=== PATIENT | female | born 1990 | race African-American/Black ===

== ENCOUNTER 2016-11-06 21:59 | Emergency (ER) | payer MEDICAID ==
[~2016-11-06] VITALS: Ht 149.9 cm; Wt 58.2 kg
[~2016-11-06 21:59] MED LIST: AMOXICILLIN 50500 MG PO; BACTRIM DS 8001 TAB PO; BRET2.5 PO; CEPHALEXIN500 M1 PO; DRAMAMINE50 M1 PO; ELIMITE TOP; FLAGYL500 MG PO; IMPLANON68 MG ID; LORTAB 5/500 501 TAB PO; LOTRIMIN1% TP; MACROBID 1100 MG/CAP PO; MOTRIN 600600 MG/TAB PO; MOTRIN 800800 MG/TAB PO; NO HOME MEDICATIONS; PERCOCET 325 MG1 TA2 PO; PHENERGAN25 MG RC; PRENATAL PO; PRENATAL1 TA2 PO; PRENATAL1 TA7 PO; VALTREX 50500 MG/TAB PO; VALTREX1 GM PO; ZITHROMAX500 M2 PO; [UNRECOGNIZED DRUG - OTHER] OP
[2016-11-06 22:02] VITALS: BP 115/62; TEMP 98.6
[2016-11-06] MEDS ORDERED: AMOXICILLIN 8751 TAB PO (23:04)
[2016-11-06] MEDS ORDERED: ULTRAM 50MG TAB50 MG PO (23:05)
[2016-11-06 23:50] VITALS: PULSE 83
== END 2016-11-06 23:56 | disposition home or self-care (01) ==
LOC: COL.ER 21:59
DX: K08.89 Other specified disorders of teeth and supporting structures (principal)

== ENCOUNTER 2016-12-27 13:43 | Emergency (ER) | payer MEDICAID ==
[~2016-12-27] VITALS: Ht 149.9 cm; Wt 59.1 kg
[~2016-12-27 13:43] MED LIST changes: +AMOXICILLIN 8751 TAB PO; +ULTRAM 50MG TAB50 MG PO
[2016-12-27 13:45] VITALS: BP 130/97; TEMP 98.5
[2016-12-27 15:58] VITALS: PULSE 90
== END 2016-12-27 15:58 | disposition home or self-care (01) ==
LOC: COL.ER 13:43
DX: K08.89 Other specified disorders of teeth and supporting structures (principal)
CPT/HCPCS: J1885

== ENCOUNTER 2017-02-13 01:30 | Emergency (ER) | payer MEDICAID ==
[~2017-02-13] VITALS: Ht 180.3 cm; Wt 61.4 kg
[2017-02-13 01:33] VITALS: BP 131/83; TEMP 99.1
[2017-02-13] MEDS ORDERED: AMOXICILLIN 50500 MG PO (02:19)
[2017-02-13 02:36] VITALS: PULSE 85
== END 2017-02-13 03:03 | disposition home or self-care (01) ==
LOC: COL.ER 01:30
DX: K04.7 Periapical abscess without sinus (principal)

== ENCOUNTER 2017-03-07 17:33 | Emergency (ER) | payer MEDICAID ==
[~2017-03-07] VITALS: Ht 154.9 cm; Wt 60.5 kg
[2017-03-07 17:45] VITALS: BP 114/66; PULSE 94; TEMP 98.7
[2017-03-07] MEDS ORDERED: PRENATAL PO (17:48)
[2017-03-07] MEDS ORDERED: DICLEGIS (17:48)
== END 2017-03-07 18:32 | disposition home or self-care (01) ==
LOC: COL.ER 17:33
DX: O99.89 Other specified diseases and conditions complicating pregnancy, childbirth and the puerperium (principal); R10.84 Generalized abdominal pain; Z3A.10 10 weeks gestation of pregnancy; W10.9XXA Fall (on) (from) unspecified stairs and steps, initial encounter

== ENCOUNTER 2017-05-02 17:05 | Emergency (ER) | payer MEDICAID ==
[~2017-05-02] VITALS: Ht 154.9 cm; Wt 61.4 kg
[~2017-05-02 17:05] MED LIST changes: +DICLEGIS
[2017-05-02 17:16] VITALS: BP 101/68; TEMP 98.3
[2017-05-02 18:19] LABS: PH 6 (5-8); URINE APPEARANCE Hazy; URINE BACTERIA Rare /hpf; URINE BILIRUBIN Negative (NEGATIVE); URINE BLOOD Negative (NEGATIVE); URINE COLOR Yellow; URINE GLUCOSE Negative (NEGATIVE); URINE KETONE Negative (NEGATIVE); URINE UROBILINOGEN Negative (NEGATIVE)
[2017-05-02 18:20] LABS: URINE WBC >50 /hpf
[2017-05-02] MEDS ORDERED: CEPHALEXIN500 M1 PO (18:46)
[2017-05-02 18:56] VITALS: PULSE 85
== END 2017-05-02 18:56 | disposition home or self-care (01) ==
LOC: COL.ER 17:05
PROVIDERS: Physician Assistant
DX: O23.12 Infections of bladder in pregnancy, second trimester (principal); Z3A.14 14 weeks gestation of pregnancy

== ENCOUNTER 2017-05-12 23:09 | Emergency (ER) | payer MEDICAID ==
[~2017-05-12] VITALS: Ht 154.9 cm; Wt 65.9 kg
[2017-05-12 23:13] VITALS: TEMP 98.8
[2017-05-13 00:07] LABS: PH 7 (5-8); URINE APPEARANCE Hazy; URINE BACTERIA Rare /hpf; URINE BILIRUBIN Negative (NEGATIVE); URINE BLOOD Negative (NEGATIVE); URINE COLOR Yellow; URINE GLUCOSE Negative (NEGATIVE); URINE KETONE 1+ (NEGATIVE); URINE RBC 0-2 /hpf; URINE UROBILINOGEN Negative (NEGATIVE)
[2017-05-13] MEDS ORDERED: OMNICEF 300MG300 MG PO (00:31)
[2017-05-13 00:53] VITALS: BP 93/71; PULSE 86
== END 2017-05-13 01:11 | disposition home or self-care (01) ==
LOC: COL.ER 23:09
PROVIDERS: Emergency Medicine
DX: O23.42 Unspecified infection of urinary tract in pregnancy, second trimester (principal); O9A.212 Injury, poisoning and certain other consequences of external causes complicating pregnancy, second trimester; S00.93XA Contusion of unspecified part of head, initial encounter; R10.32 Left lower quadrant pain; O9A.312 Physical abuse complicating pregnancy, second trimester; Z3A.20 20 weeks gestation of pregnancy; Y04.0XXA Assault by unarmed brawl or fight, initial encounter; Y04.2XXA Assault by strike against or bumped into by another person, initial encounter; Y92.003 Bedroom of unspecified non-institutional (private) residence as the place of occurrence of the external cause; Y07.01 Husband, perpetrator of maltreatment and neglect; Z67.10 Type A blood, Rh positive
CPT/HCPCS: J0696; J7030

== ENCOUNTER 2017-06-22 07:19 | Outpatient (CLI) | payer MEDICAID ==
[~2017-06-22] VITALS: Ht 154.9 cm; Wt 61.4 kg
[~2017-06-22 07:19] MED LIST changes: +OMNICEF 300MG300 MG PO
[2017-06-22 07:36] VITALS: BP 107/72; PULSE 81; TEMP 97.7
[2017-06-22 09:04] LABS: PH 6 (5-8); URINE APPEARANCE Clear; URINE BACTERIA None Seen /hpf; URINE BILIRUBIN Negative (NEGATIVE); URINE BLOOD Negative (NEGATIVE); URINE COLOR Yellow; URINE GLUCOSE Negative (NEGATIVE); URINE KETONE Negative (NEGATIVE); URINE RBC 0-2 /hpf
[2017-06-22 09:10] VITALS: BP 102/64; PULSE 68
== END 2017-06-22 09:25 | disposition home or self-care (01) ==
LOC: LDRO 07:19
PROVIDERS: Obstetrics & Gynecology
DX: Z34.82 Encounter for supervision of other normal pregnancy, second trimester (principal); Z3A.25 25 weeks gestation of pregnancy

== ENCOUNTER 2017-06-29 16:05 | Outpatient (CLI) | payer MEDICAID ==
[~2017-06-29] VITALS: Ht 154.9 cm; Wt 65.5 kg
[2017-06-29 16:21] VITALS: BP 102/66; PULSE 79; TEMP 98.2
[2017-06-29 16:30] VITALS: BP 102/66; PULSE 82; TEMP 98.2
== END 2017-06-29 17:29 | disposition home or self-care (01) ==
LOC: LDRO 16:05
DX: O26.892 Other specified pregnancy related conditions, second trimester (principal); R10.2 Pelvic and perineal pain; Z3A.26 26 weeks gestation of pregnancy

== ENCOUNTER 2017-07-02 06:29 | Observation (INO) | payer MEDICAID ==
[2017-07-02] VITALS (9 sets, daily range): BP systolic 87–98; BP diastolic 50–68; PULSE 65–102; TEMP 98.2–102.4
[~2017-07-02] VITALS: Ht 154.9 cm; Wt 65.3 kg
[2017-07-02 07:15] LABS: BASO % 0.4 % (0.0-2.0); EOS % 0.4 % (0-4.0); GRAN # 6.4 (1.4-6.5); GRAN % 83.4 % (42.2-75.2); LYMPH # 0.7 (1.2-3.4); LYMPH % 8.6 % (20.0-51.0); MEAN CELL VOLUME 88 fl (80.0-100.0); MEAN CORPUSCULAR HGB CONC 34 g/dl (33.0-37.0); MEAN PLATELET VOLUME 10.5 fl (7.4-10.4); MONO # 0.5 (0.1-0.6); MONO % 6.8 % (1.7-9.3); PLATELET COUNT 209 K/mm3 (130-400); REDCELL DISTRIBUTION WIDTH-CV 13.2 % (11.5-14.5); WHITE BLOOD COUNT 7.7 K/mm3 (4.8-10.8)
[2017-07-02 07:16] LABS: HEMATOCRIT 31.5 % (37.0-47.0); HEMOGLOBIN 10.7 g/dl (12.5-16.0); MEAN CORPUSCULAR HEMOGLOBIN 30 pg (27.0-31.0)
[2017-07-02] MEDS ORDERED: TYLENOL PM EXTR1 TA1 PO (07:19)
[2017-07-02 07:24] LABS: ADJUSTED CALCIUM 9.1 mg/dL (8.4-10.2); ALBUMIN 3.4 gm/dL (3.5-5.0); BILIRUBIN,TOTAL 1.5 mg/dL (0.0-1.0); CALCIUM 8.6 mg/dL (8.4-10.2); CREATININE, serum 0.5 mg/dL (0.52-1.25); POTASSIUM 3.2 mmol/L (3.4-5.0); TOTAL PROTEIN 7.3 gm/dL (6.4-8.2)
[2017-07-02 07:49] LABS: PH 6 (5-8); SQUAMOUS EPITHELIAL 0-2 /hpf; URINE APPEARANCE Cloudy; URINE BILIRUBIN Negative (NEGATIVE); URINE BLOOD 1+ (NEGATIVE); URINE COLOR Yellow; URINE GLUCOSE Negative (NEGATIVE); URINE KETONE 2+ (NEGATIVE); URINE UROBILINOGEN Negative (NEGATIVE); URINE WBC >50 /hpf
[2017-07-02 07:50] LABS: URINE BACTERIA Moderate /hpf
[2017-07-03 00:11] VITALS: BP 86/51; PULSE 79; TEMP 98.1
[2017-07-03 04:30] VITALS: BP 77/41; PULSE 80; TEMP 97.6
[2017-07-03 09:05] VITALS: BP 88/53; PULSE 90; TEMP 99.1
[2017-07-03] MEDS ORDERED: CEPHALEXIN500 M1 PO (09:12)
== END 2017-07-03 12:50 | disposition home or self-care (01) ==
LOC: LDRO 06:29 → LDR 08:12 → LDRO 08:54 → OB 08:54
PROVIDERS: Obstetrics & Gynecology
DX: O23.02 Infections of kidney in pregnancy, second trimester (principal); O99.012 Anemia complicating pregnancy, second trimester; O98.312 Other infections with a predominantly sexual mode of transmission complicating pregnancy, second trimester; A60.09 Herpesviral infection of other urogenital tract; O76 Abnormality in fetal heart rate and rhythm complicating labor and delivery; Z3A.24 24 weeks gestation of pregnancy; Z83.3 Family history of diabetes mellitus
CPT/HCPCS: G0378; J0696; J7120

== ENCOUNTER 2017-08-04 14:19 | Outpatient (CLI) | payer MEDICAID ==
[~2017-08-04] VITALS: Ht 154.9 cm; Wt 65.9 kg
[2017-08-04 13:58] VITALS: BP 99/63; PULSE 75; TEMP 98.2
[~2017-08-04 14:19] MED LIST changes: +TYLENOL PM EXTR1 TA1 PO
== END 2017-08-04 15:35 | disposition home or self-care (01) ==
LOC: LDRO 14:19
DX: Z34.83 Encounter for supervision of other normal pregnancy, third trimester (principal); Z3A.32 32 weeks gestation of pregnancy

== ENCOUNTER 2017-10-18 22:13 | Emergency (ER) | payer MEDICAID ==
[~2017-10-18] VITALS: Ht 154.9 cm; Wt 65.9 kg
[~2017-10-18 22:13] MED LIST changes: +IBU800 M1 PO
[2017-10-18 22:15] VITALS: TEMP 98.2
[2017-10-18] MEDS ORDERED: ANUSOL HC CREAM30 GM TP (22:41)
[2017-10-18 22:45] VITALS: BP 127/74; PULSE 70
== END 2017-10-18 22:55 | disposition home or self-care (01) ==
LOC: COL.ER 22:13
DX: K64.9 Unspecified hemorrhoids (principal)

== ENCOUNTER 2017-10-21 17:15 | Emergency (ER) | payer MEDICAID ==
[~2017-10-21] VITALS: Ht 154.9 cm; Wt 61.4 kg
[~2017-10-21 17:15] MED LIST changes: +ANUSOL HC CREAM30 GM TP
[2017-10-21 17:26] VITALS: BP 126/84; PULSE 69; TEMP 98.3
[2017-10-21 18:23] LABS: HEMATOCRIT 40.7 % (37.0-47.0); MEAN CELL VOLUME 89 fl (80.0-100.0); MEAN CORPUSCULAR HEMOGLOBIN 28 pg (27.0-31.0); MEAN CORPUSCULAR HGB CONC 32 g/dl (33.0-37.0); MEAN PLATELET VOLUME 10.3 fl (7.4-10.4); PLATELET COUNT 288 K/mm3 (130-400); RED BLOOD COUNT 4.58 M/mm3 (4.10-5.30); WHITE BLOOD COUNT 4.1 K/mm3 (4.8-10.8)
[2017-10-21 18:24] LABS: ADD PATHOLOGY DIFF REVIEW NO
[2017-10-21 19:24] LABS: BAND 8 % (0-10); EOSINOPHIL 4 % (0-4); LYMPHOCYTE 43 % (20.0-51.0); NEUTROPHILS 39 % (42.0-75.2); TOTAL CELLS COUNTED 100
[2017-10-21 19:25] LABS: PLATELET ESTIMATE NORMAL (NORMAL)
== END 2017-10-21 19:01 | disposition home or self-care (01) ==
LOC: COL.ER 17:15
PROVIDERS: Physician Assistant
DX: K64.4 Residual hemorrhoidal skin tags (principal); D64.9 Anemia, unspecified; Z87.891 Personal history of nicotine dependence

== ENCOUNTER 2017-11-04 15:43 | Emergency (ER) | payer MEDICAID ==
[~2017-11-04] VITALS: Ht 154.9 cm; Wt 63.2 kg
[2017-11-04 15:47] VITALS: BP 113/69; TEMP 99.9
[2017-11-04 16:24] LABS: INFLUENZA A POSITIVE; INFLUENZA B NEGATIVE
[2017-11-04] MEDS ORDERED: TAMIFLU 75MG75 MG PO (17:27)
[2017-11-04 17:33] VITALS: PULSE 99
== END 2017-11-04 17:37 | disposition home or self-care (01) ==
LOC: COL.ER 15:43
PROVIDERS: Nurse Practitioner
DX: J10.1 Influenza due to other identified influenza virus with other respiratory manifestations (principal)

== ENCOUNTER 2017-12-25 20:17 | Emergency (ER) | payer MEDICAID ==
[~2017-12-25] VITALS: Ht 154.9 cm; Wt 63.2 kg
[~2017-12-25 20:17] MED LIST changes: +TAMIFLU 75MG75 MG PO
[2017-12-25 20:21] VITALS: TEMP 98.5
[2017-12-25 21:06] LABS: COLLECTION METHOD CLEAN CATCH
[2017-12-25 21:13] LABS: MUCOUS Present /lpf; PH 7 (5-8); URINE APPEARANCE Clear; URINE BACTERIA None Seen /hpf; URINE BILIRUBIN Negative (NEGATIVE); URINE BLOOD Negative (NEGATIVE); URINE COLOR Yellow; URINE GLUCOSE Negative (NEGATIVE); URINE KETONE Negative (NEGATIVE); URINE LEUKOCYTE ESTERASE 2+ (NEGATIVE); URINE NITRATE Negative (NEGATIVE); URINE PROTEIN(semi-quant) Negative (NEGATIVE)
[2017-12-25 21:40] LABS: BASO % 0.4 % (0.0-2.0); EOS # 0.1 (0.0-0.7); EOS % 1.9 % (0-4.0); GRAN % 65.9 % (42.2-75.2); HEMATOCRIT 38.1 % (37.0-47.0); HEMOGLOBIN 12.5 g/dl (12.5-16.0); LYMPH # 1.7 (1.2-3.4); MEAN CELL VOLUME 87 fl (80.0-100.0); MEAN CORPUSCULAR HEMOGLOBIN 29 pg (27.0-31.0); MEAN CORPUSCULAR HGB CONC 33 g/dl (33.0-37.0); MEAN PLATELET VOLUME 10.6 fl (7.4-10.4); MONO # 0.7 (0.1-0.6); MONO % 8.7 % (1.7-9.3); PLATELET COUNT 272 K/mm3 (130-400); RED BLOOD COUNT 4.36 M/mm3 (4.10-5.30); REDCELL DISTRIBUTION WIDTH-CV 13.1 % (11.5-14.5)
[2017-12-25 21:51] LABS: ALBUMIN 4.3 gm/dL (3.5-5.0); BILIRUBIN,TOTAL 0.8 mg/dL (0.0-1.0); CREATININE, serum 0.58 mg/dL (0.52-1.25); POTASSIUM 3.6 mmol/L (3.4-5.0); TOTAL PROTEIN 7.9 gm/dL (6.4-8.2)
[2017-12-25 22:10] LABS: COLLECTION METHOD CATHETER
[2017-12-25 22:16] LABS: MUCOUS Present /lpf; PH 7 (5-8); URINE APPEARANCE Clear; URINE BACTERIA None Seen /hpf; URINE BILIRUBIN Negative (NEGATIVE); URINE BLOOD Negative (NEGATIVE); URINE COLOR Yellow; URINE GLUCOSE Negative (NEGATIVE); URINE KETONE Negative (NEGATIVE); URINE LEUKOCYTE ESTERASE Negative (NEGATIVE); URINE NITRATE Negative (NEGATIVE); URINE PROTEIN(semi-quant) Negative (NEGATIVE); URINE RBC 0-2 /hpf
[2017-12-25] MEDS ORDERED: ULTRAM 50MG TAB50 MG PO (22:27)
[2017-12-25 22:41] VITALS: BP 105/64; PULSE 95
[2017-12-26] MEDS ORDERED: ZITHROMAX500 M2 PO (15:17)
== END 2017-12-25 22:40 | disposition home or self-care (01) ==
LOC: COL.ER 20:17
PROVIDERS: Nurse Practitioner
DX: R10.2 Pelvic and perineal pain (principal); Z87.42 Personal history of other diseases of the female genital tract

== ENCOUNTER 2019-07-23 15:40 | Emergency (ER) | payer MEDICAID ==
[~2019-07-23] VITALS: Ht 154.9 cm; Wt 65.9 kg
[2019-07-23 15:48] VITALS: BP 137/91; PULSE 76; TEMP 98.9
[2019-07-23 16:03] LABS: COLLECTION METHOD CLEAN CATCH
[2019-07-23 16:13] LABS: MUCOUS Present /lpf; PH 5 (5-8); URINE APPEARANCE Clear; URINE BACTERIA None Seen /hpf; URINE BILIRUBIN Negative (NEGATIVE); URINE BLOOD 3+ (NEGATIVE); URINE COLOR Yellow; URINE GLUCOSE Negative (NEGATIVE); URINE KETONE Negative (NEGATIVE); URINE LEUKOCYTE ESTERASE Negative (NEGATIVE); URINE NITRATE Negative (NEGATIVE); URINE PROTEIN(semi-quant) Negative (NEGATIVE); URINE RBC >50 /hpf; URINE UROBILINOGEN Negative (NEGATIVE)
[2019-07-23] MEDS ORDERED: DIFLUCAN150 MG PO ×2 (16:30→17:06)
[2019-07-23] MEDS ORDERED: PEN-VEE K500 MG PO ×2 (16:30→17:06)
== END 2019-07-23 17:02 | disposition home or self-care (01) ==
LOC: COL.ER 15:40
PROVIDERS: Emergency Medicine
DX: K04.7 Periapical abscess without sinus (principal); N76.0 Acute vaginitis; B96.89 Other specified bacterial agents as the cause of diseases classified elsewhere

== ENCOUNTER 2019-09-30 19:44 | Emergency (ER) | payer MEDICAID ==
[~2019-09-30] VITALS: Ht 154.9 cm; Wt 68.2 kg
[~2019-09-30 19:44] MED LIST changes: +DIFLUCAN150 MG PO; +PEN-VEE K500 MG PO
[2019-09-30 19:51] VITALS: BP 104/75; TEMP 99.2
[2019-09-30 20:17] LABS: STREP SCREEN NEGATIVE
[2019-09-30 21:10] VITALS: PULSE 82
[2019-09-30] MEDS ORDERED: AMOXICILLIN875 MG PO (21:14)
== END 2019-09-30 21:20 | disposition home or self-care (01) ==
LOC: COL.ER 19:44
PROVIDERS: Emergency Medicine
DX: J02.9 Acute pharyngitis, unspecified (principal); Z88.1 Allergy status to other antibiotic agents

== ENCOUNTER 2019-11-14 10:56 | Emergency (ER) | payer MEDICAID ==
[~2019-11-14] VITALS: Ht 154.9 cm; Wt 70.5 kg
[~2019-11-14 10:56] MED LIST changes: +AMOXICILLIN875 MG PO
[2019-11-14 10:59] VITALS: BP 126/69; TEMP 98.8
[2019-11-14] MEDS ORDERED: PRENATAL TABLET PO (11:07)
[2019-11-14] MEDS ORDERED: TYLENOL 325MG325 MG PO (11:07)
[2019-11-14 12:00] VITALS: PULSE 76
== END 2019-11-14 12:00 | disposition home or self-care (01) ==
LOC: COL.ER 10:56
PROVIDERS: Physician Assistant
DX: J11.1 Influenza due to unidentified influenza virus with other respiratory manifestations (principal)